=== PATIENT | male | born 1975 | race Two or more races ===

== ENCOUNTER 2021-05-06 11:44 | Emergency (ER) | payer SELFPAY ==
--- NOTE | 2021-05-06 13:17 | HMH.EDUTC ---
[facility] [place] Disposition Clinical Impression: Viral syndrome, Bradycardia Otitis media Qualifiers: Otitis media type: suppurative Chronicity: acute Laterality: bilateral Recurrence: non-recurrent Spontaneous tympanic membrane rupture: without spontaneous rupture Qualified Code(s): H66.003 - Acute suppurative otitis media without spontaneous rupture of ear drum, bilateral Disposition: Home, Self-Care Condition on Discharge: Good Instructions: DI for Viral Syndrome Additional Instructions: Drink plenty of fluids. Go home and rest. Take tylenol or ibuprofen for pain or fever. Take the medications as directed. Follow up with your regular doctor. GO TO THE ER FOR ANY WORSENING SYMPTOMS Quarantine until you know the results of your covid-19 test. If it is positive, the health department should call you and give you further instructions about your length of Quarantine and other things. Notify your school or workplace of your results and follow their instructions regarding return to work/school. Follow up with a primary care physician for your elevated blood pressure. We will give you a list of primary care physicians. I put in a referral to Dr. Galeana. 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 Your heart rate is slightly low here today. Your symptoms could be explained by having a low heart rate Prescriptions: Amoxicillin [Amoxicillin 500mg Tab] 500 mg PO TID 10 Days #30 tab Transmission Status: Received by [id number] Ondansetron [Zofran 4mg ODT] 4 mg PO DAILYP PRN #12 tab PRN Reason: Nausea Transmission Status: Received by [id number] Referrals: ProviderCharmaine MD [Primary Care Provider] - Luis A Galeana MD [Staff Physician] - Time of Disposition: 14:19 Medical Decision Making - Medical Records Medical records reviewed: No: I reviewed the patient's medical records. - Zac Inquiry Pt receiving controlled substance: No Vital Signs: 05/06/21 13:18 05/06/21 14:30 Temperature 98.2 F 98.2 F Temperature Source Oral Pulse Rate 54 L Pulse Rate [Left Radial] 54 L Respiratory Rate 18 18 Blood Pressure 150/90 H Blood Pressure [Left Arm] 150/90 H Blood Pressure Mean [Left Arm] 110 Blood Pressure Source [Left Arm] Automatic Cuff Blood Pressure Position [Left Arm] Sitting 02 Sat by Pulse Oximetry 99 Oxygen Delivery Method Room Air - Lab Data Lab Results 05/06/21 13:30: Strep Scn Rapid Clinic Negative Orders (Tests/Meds): ORDERS Category Date Time Status Strep Screen Confirmation Stat Micro 05/06/21 13:30 Received - ECG Data Tracing #1 ECG initial impression date: 05/06/21 ECG initial impression time: 15:00 Normal Sinus Rhythm: No Arrhythmias present: sinus juan ECG compared to prior tracings: there are no prior tracings available for comparison [facility] [place] HPI - General Stated complaint: high bp, dizziness, nausea Time Seen by Provider: 05/06/21 13:00 - History of Present Illness Provider Complaint: He states that when he got out of bed this morning he had a period of being very nauseated. He also has had a head ache and some posterior neck pain and a mild sore throat. He states that since he felt like that this morning, he has felt some better but he still has the head ache, neck pain, and he just feels bad. He has not been vaccinated against covid-19. He denies any known sick contacts. 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 He denies any chest pain, shortness of breath, and fever. - Related Data Previous Rx's Medication Instructions Recorded Amoxicillin [Amoxicillin 500mg Tab] 500 mg PO TID 10 Days #30 tab 05/06/21 Ondansetron [Zofran 4mg ODT] 4 mg PO DAILYP PRN #12 tab 05/06/21 Allergies Allergy/AdvReac Type Severity Reaction Status Date / Time No Known Allergies Allergy Verified 05/06/21 13:23 [facility] History - Hepatitis A Screen Attestation stat
[2021-05-06 13:18] VITALS: BP 150/90; PULSE 54; RESP 18; TEMP 36.8; O2SAT 99; BMI 27.2
--- NOTE | 2021-05-06 14:28 | ECG_ITS ---
APPROVED REPORT Exam: Resting ECG HR:50 bpm ECG Measurements Heart Rate 50 AXES KS 152 P 40 QRSd 82 QRS 32 QT 412 T 25 QTc 375 Conclusion Sinus bradycardia Otherwise normal ECG Electronically signed by : Jered Fenton MD 05/07/2021 21:11:52
[2021-05-06 14:30] VITALS: BP 150/90; PULSE 54; RESP 18; TEMP 36.8; O2SAT 99
[2021-05-07 10:01] LABS: UTC Strep Screen (Rapid) Negative (Negative)
== END 2021-05-06 14:30 | disposition home or self-care (01) ==
PROVIDERS: Emergency Provider Nurse Practitioner Family
DX: B34.9 Viral infection, unspecified (principal); Z20.822 Contact with and (suspected) exposure to COVID-19; R00.1 Bradycardia, unspecified
CPT/HCPCS: 87880; 93005; 99202; C9803; G0463; U0003; U0005